=== PATIENT | female | born 1950 | race Two or more races ===

== ENCOUNTER → 2020-06-14 | Outpatient (CLI) | payer MEDICARE ==
[~2020-06-14] MED LIST: ACET-1600 PO; AMLO-150 PO; CALC215T PO; INDO50CA15 PO; LISI1TAB39 PO; METF500T17 PO; OMEG1CAP39 PO; PRAV20TA2 PO
[2020-06-14 09:35] LABS: ALANINE AMINOTRANSFERASE 29 U/L (12-78); ALBUMIN 3.8 g/dL (3.4-5.0); ANION GAP 7 mmol/L (5-15); CALCIUM 8.8 mg/dL (8.5-10.1); CHLORIDE 109 mmol/L (98-107); CREATININE 0.63 mg/dL (0.55-1.02)
[2020-06-14 09:37] LABS: ALKALINE PHOSPHATASE 81 U/L (45-117); BILIRUBIN,TOTAL 0.3 mg/dL (0.2-1.0); TOTAL PROTEIN 7.9 g/dL (6.4-8.2)
== END | disposition home or self-care (01) ==
LOC: STAR 08:10
PROVIDERS: ATTEND Obstetrics & Gynecology Female Pelvic Medicine and Reconstructive Surgery
DX: Z01.818 Encounter for other preprocedural examination (principal); R10.2 Pelvic and perineal pain; N39.3 Stress incontinence (female) (male); N81.4 Uterovaginal prolapse, unspecified; R94.31 Abnormal electrocardiogram [ECG] [EKG]; I44.0 Atrioventricular block, first degree; I51.7 Cardiomegaly; Z20.822 Contact with and (suspected) exposure to COVID-19
CPT/HCPCS: 80053; 87635; 93005

== ENCOUNTER 2020-06-20 07:15 | Day surgery (SDC) | payer MEDICARE, MEDICAID ==
[2020-06-14 15:56] VITALS: BP 163/72
[~2020-06-20] VITALS: Ht 152.4 cm; Wt 81.6 kg
[~2020-06-20 07:15] MED LIST changes: +BUPIVACAINE/PF 0.25% ONE; +EPINEPHRINE 1 MG/ML, 1ML ONE; +NEOMY/POLYMYXIN B GU IRR. 1 ML ONE
[2020-06-20] MEDS ORDERED: CHLORHEXIDINE 15 ML UDC ONE (07:49)
[2020-06-20] MEDS ORDERED: CHLORHEXIDINE 15 ML UDC MM ONE (08:00)
[2020-06-20] MEDS ORDERED: LACTATED RINGERS 1,000 ML IV SCH (08:00)
[2020-06-20] MEDS ORDERED: PROMETHAZINE 25 MG/ML, 1ML IVPush PRN (09:00)
[2020-06-20] MEDS ORDERED: HYDROmorphone 1 MG/ML, 1ML INJ IVPush PRN (09:00)
[2020-06-20] MEDS ORDERED: HYDROcodone/APAP 7.5-325MG/15ML UDC PO PRN (09:00)
[2020-06-20] MEDS ORDERED: MEPERIDINE/PF 25MG/0.5ML IVPush PRN (09:00)
[2020-06-20] MEDS ORDERED: ONDANSETRON 2MG/ML, 2ML IVPush PRN (09:00)
[2020-06-20] MEDS ORDERED: FENTANYL PF 100 MCG/2ML ONE ×2 (09:01→11:56)
[2020-06-20] MEDS ORDERED: MIDAZOLAM 1 MG/ML, 2ML ONE (09:01)
[2020-06-20] MEDS ORDERED: CEFAZOLIN 1,000 MG ONE (09:49)
[2020-06-20] MEDS ORDERED: ONDANSETRON 2MG/ML, 2ML ONE (09:49)
[2020-06-20] MEDS ORDERED: NEOSTIGMINE 1 MG/ML, 10ML ONE (09:49)
[2020-06-20] MEDS ORDERED: ROCURONIUM 10MG/ML,5ML ONE (09:49)
[2020-06-20] MEDS ORDERED: SUCCINYLCHOLINE 20 MG/ML, 10ML ONE (09:49)
[2020-06-20] MEDS ORDERED: PROPOFOL 10 MG/ML, 20ML ONE (09:49)
[2020-06-20] MEDS ORDERED: GLYCOPYRROLATE 0.2MG/1ML, 5ML ONE (09:49)
[2020-06-20] MEDS ORDERED: SUGAMMADEX 200 MG/2 ML IVPush ONE (09:52)
[2020-06-20] MEDS ORDERED: LIDOCAINE-MPF 2% ,5ML ONE (09:52)
[2020-06-20] MEDS ORDERED: EPHEDRINE 50 MG/ML, 1ML ONE (09:52)
[2020-06-20] MEDS ORDERED: DEXAMETHASONE 4 MG/ML, 5ML ONE (09:52)
[2020-06-20] MEDS ORDERED: OXYcodone 5 MG/5 ML ORAL.SOL UDC ONE (11:56)
[2020-06-20] MEDS: FENTANYL PF 100 MCG/2ML IV PRN ×4 (12:00→12:30)
[2020-06-20] MEDS: OXYcodone 5 MG/5 ML ORAL.SOL UDC PO PRN ×2 (12:16→12:36)
== END 2020-06-20 16:00 | disposition home or self-care (01) ==
LOC: OUT 07:15
PROVIDERS: ATTEND Obstetrics & Gynecology Female Pelvic Medicine and Reconstructive Surgery
DX: N39.46 Mixed incontinence (principal); N81.4 Uterovaginal prolapse, unspecified; E11.9 Type 2 diabetes mellitus without complications; I10 Essential (primary) hypertension; E78.00 Pure hypercholesterolemia, unspecified; M19.90 Unspecified osteoarthritis, unspecified site; Z90.49 Acquired absence of other specified parts of digestive tract; Z79.899 Other long term (current) drug therapy; Z98.890 Other specified postprocedural states
CPT/HCPCS: 57265; 57282; 57288; 58552; 82962; 88307; C1771; J0171; J0330; J0690; J1100; J2250; J2405; J2704; J2710; J3010; J7120